=== PATIENT | female | born 1980 | race Asian ===

== ENCOUNTER 2018-10-29 16:56 | Emergency (ER) | payer SELFPAY ==
[~2018-10-29] VITALS: Ht 160 cm; Wt 49.0 kg
[2018-10-29 17:47] VITALS: BP 124/68
[2018-10-29 17:59] VITALS: BP 154/110
--- NOTE | 2018-10-29 19:51 | NUR ---
NO ANSWER AT 1950, 2004, AND 2034. PATIENT LEFT WITHOUT BEING SEEN BY DR. MEIER. NO FURTHER CARE PROVIDED FOR PATIENT.
== END 2018-10-29 19:51 | disposition left against medical advice (07) ==
LOC: MED 16:56
DX: M79.622 Pain in left upper arm (principal); E78.00 Pure hypercholesterolemia, unspecified; Z53.21 Procedure and treatment not carried out due to patient leaving prior to being seen by health care provider

== ENCOUNTER 2021-04-27 13:28 | Emergency (ER) | payer OTHER ==
[~2021-04-27] VITALS: Ht 165.1 cm; Wt 56.7 kg
--- NOTE | 2021-04-27 13:28 | NUR ---
PT BVROUGHT TO BED 7 VIA [facility]
[2021-04-27 13:29] VITALS: BP 123/77
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
--- NOTE | 2021-04-27 14:00 | NUR ---
pt ambulated to restroom for urine sample.
[2021-04-27 14:26] LABS: BASOPHILS # (AUTO) 0.1 K/uL (0.00-0.22); BASOPHILS % (AUTO) 0.8 % (0.0-2.0); EOSINOPHILS # (AUTO) 0.1 K/uL (0-0.4); EOSINOPHILS % (AUTO) 0.6 % (0.0-4.0); HEMATOCRIT 46.6 % (36-48); HEMOGLOBIN 16.1 g/dL (12.0-16.0); LYMPHOCYTES # (AUTO) 2.7 K/uL (2.5-16.5); LYMPHOCYTES % (AUTO) 32.1 % (20.5-51.1); MEAN CORPUSCULAR HEMOGLOBIN 33 pg (27-31); MEAN CORPUSCULAR HGB CONC 35 g/dL (33-37); MEAN CORPUSCULAR VOLUME 94.4 fL (80-94); MONOCYTES # (AUTO) 0.5 K/uL (0.8-1.0); MONOCYTES % (AUTO) 5.8 % (1.7-9.3); NEUTROPHILS # (AUTO) 5.1 K/uL (1.8-7.7); NEUTROPHILS % (AUTO) 60.7 % (42.2-75.2); PLATELET COUNT (AUTO) 244 K/uL (140-450); RED BLOOD CELL COUNT(AUTO) 4.93 MIL/uL (4.20-5.40); RED CELL DISTRIBUTION WIDTH 12.1 % (11.6-13.7); WHITE BLOOD COUNT (AUTO) 8.4 K/uL (4.8-10.8)
[2021-04-27 14:27] LABS: APPEARANCE,URINE CLEAR (CLEAR); BILIRUBIN,URINE NEGATIVE (NEGATIVE); BLOOD, URINE NEGATIVE (NEGATIVE); COLOR,URINE YELLOW (YELLOW); LEUKOCYTE ESTERASE ,URINE NEGATIVE (NEGATIVE); NITRITE, URINE NEGATIVE (NEGATIVE); UGLUCOSE 3+ (NEGATIVE)
--- NOTE | 2021-04-27 14:40 | NUR ---
lab at bedside, ua done, hcg neg, bs 211. pt amb to brp w/o asst. vss, pt stable at this time
[2021-04-27 14:41] LABS: ALBUMIN 4.1 g/dL (3.4-5.0); ANION GAP 12.7 (8-16); ASPARTATE AMINOTRANSFERASE 12 U/L (15-37); CARBON DIOXIDE 29.3 mmol/L (21-32); CHLORIDE 101 mmol/L (98-107); CREATININE 0.6 mg/dL (0.6-1.3); GFR ARICAN-AMERICAN 141 mL/min (>90); GLUCOSE 264 mg/dL (74-106); SODIUM SERUM 139 mmol/L (136-145); TOTAL BILIRUBIN 0.3 mg/dL (0.0-1.0); UREA NITROGEN, BLOOD 9 mg/dL (7-18)
[2021-04-27 14:44] LABS: ACETAMINOPHEN < 0.5 ug/ml (10-30); SALICYLATE < 2.8 mg/dL (2.8-20.0)
[2021-04-27 14:44] LABS: BARBITURATE, URINE NEGATIVE ng/ml (NEG <=200); BENZODIAZEPINE, URINE NEGATIVE ng/mL (NEG <=200); CANNABINOID, URINE NEGATIVE ng/mL (NEG <=50); COCAINE, URINE NEGATIVE ng/mL (NEG <=300); OPIATE, URINE NEGATIVE ng/mL (NEG <=2000); PHENCYCLIDINE SCREEN,URINE NEGATIVE ng/mL (NEG <=25)
--- NOTE | 2021-04-27 15:45 | NUR ---
[facility] monitor at bedside.
--- NOTE | 2021-04-27 16:14 | NUR ---
Patient resting in position of comfort. No distress noted. shelter monitor in place. Bed locked in lowest position, side rails x 1.
[2021-04-27 16:22] VITALS: BP 118/72
--- NOTE | 2021-04-27 16:26 | NUR ---
Patient on line with [facility]. Connected to [place] intrepretor #[id number], however, patient began speaking in Azeri. Disconnected from intrepretor @ [id number].
--- NOTE | 2021-04-27 16:39 | NUR ---
Telepsych MD states Abilify 10mg now and transfer to outpatient hospital treatment.
--- NOTE | 2021-04-27 16:43 | NUR ---
Attempted to contact Rick Gutierres (brother) x 2, person answering phone hung up.
[2021-04-27] MEDS ORDERED: ABI10 PO (17:36)
--- NOTE | 2021-04-27 17:50 | NUR ---
Contacted Rick Gutierres (brother); patient's mom answered and advised of discharge. Mother states 30 minute ETA for transportation. Addendum: 04/27/21 at 1805 by HOSSEIN Pt made aware of mother's ETA and advised to wait in lobby.
--- NOTE | 2021-04-27 18:00 | NUR ---
Patient discharged with v/s stable. Written and verbal after care instructions given and explained. Patient alert, oriented and verbalized understanding of instructions. Ambulatory with steady gait. All questions addressed prior to discharge. ID band removed. Patient advised to follow up with PMD. Rx of Abilify given. Patient educated on indication of medication including possible reaction and side effects. Opportunity to ask questions provided and answered.
== END 2021-04-27 18:00 | disposition home or self-care (01) ==
LOC: MED 13:28
DX: F60.0 Paranoid personality disorder (principal); E11.9 Type 2 diabetes mellitus without complications; E03.9 Hypothyroidism, unspecified; E78.5 Hyperlipidemia, unspecified; Z79.899 Other long term (current) drug therapy
CPT/HCPCS: 36415; 80053; 80305; 81003; 81025; 82948; 85025; 99283; G0480; G0482

== ENCOUNTER 2023-09-18 09:06 | Inpatient (IN) | payer OTHER ==
[~2023-09-18] VITALS: Ht 152.4 cm; Wt 45.5 kg
[2023-09-18] VITALS (12 sets, daily range): BP systolic 103–131; BP diastolic 25–85; PULSE 120–144; RESP 26–53; TEMP 96.4–97.9; O2SAT 36–100
[~2023-09-18 09:06] MED LIST: ABI10 PO; ETOMIDATE 20 MG/10 ML VIAL IVP ONE
[2023-09-18] MEDS: NACL 0.9% 2,000 ML IV SCH (09:22)
[2023-09-18 09:53] LABS: HEMATOCRIT 45.7 % (36-48); HEMOGLOBIN 13.8 g/dL (12.0-16.0); MEAN CORPUSCULAR HEMOGLOBIN 31 pg (27-31); MEAN CORPUSCULAR HGB CONC 30 g/dL (33-37); MEAN CORPUSCULAR VOLUME 103.2 fL (80-94); PLATELET COUNT (AUTO) 753 K/uL (140-450); RED BLOOD CELL COUNT(AUTO) 4.43 MIL/uL (4.20-5.40); RED CELL DISTRIBUTION WIDTH 13.2 % (11.6-13.7)
[2023-09-18 09:59] LABS: INR 0.98 (0.8-1.2); PARTIAL THROMBOPLASTIN TIME 24.4 secs (22-35.6); PROTHROMBIN TIME 10.3 secs (10.8-13.4)
[2023-09-18 10:02] LABS: WHITE BLOOD COUNT (AUTO) 31.7 K/uL (4.8-10.8)
[2023-09-18 10:03] LABS: LYMPHOCYTES % (MANUAL) 12 % (20-46); MONOCYTES % (MANUAL) 3 % (5-12)
[2023-09-18 10:04] LABS: ALANINE AMINOTRANSFERASE 17 U/L (12-78); ALKALINE PHOSPHATASE 177 U/L (50-136); ASPARTATE AMINOTRANSFERASE 12 U/L (15-37); BILIRUBIN,DIRECT 0.1 mg/dL (0.0-0.3); CREATINE KINASE, TOTAL 36 U/L (26-192); PLATELET ESTIMATE INCREASED; TOTAL BILIRUBIN 0.3 mg/dL (0.0-1.0); TOTAL PROTEIN, SERUM 10.1 g/dL (6.4-8.2)
[2023-09-18 10:06] LABS: LACTIC ACID 9.7 mmol/L (0.4-2.0)
[2023-09-18 10:18] LABS: ANION GAP 36.6 (8-16); CARBON DIOXIDE 10.2 mmol/L (21-32); CREATININE 1.8 mg/dL (0.6-1.3); POTASSIUM 4.8 mmol/L (3.5-5.1)
[2023-09-18] MEDS: ROCURONIUM 50 MG/5 ML VIAL IV ONE (10:18)
[2023-09-18] MEDS: ETOMIDATE 20 MG/10 ML VIAL IVP ONE (10:19)
[2023-09-18] MEDS ORDERED: PIPERACILLIN/TAZOBACTAM 3.375 GM VIAL IV ONE (10:20)
[2023-09-18] MEDS: PIPERACILLIN/TAZOBACTAM 3.375 GM in DEXTROSE 5% 50 ML IV ONE (10:47)
[2023-09-18] MEDS ORDERED: MAGNESIUM OXIDE 400 MG TAB PO PRN ×2 (10:50→12:45)
[2023-09-18] MEDS ORDERED: ONDANSETRON 4 MG/2 ML VIAL IVP PRN ×2 (10:50→12:45)
[2023-09-18] MEDS ORDERED: POTASSIUM CHLORIDE 10 MEQ TABER PO PRN ×2 (10:50→12:45)
[2023-09-18] MEDS ORDERED: VANCOMYCIN PER PHARMACY MC PRN (10:50)
[2023-09-18] MEDS ORDERED: MAG SULF 2000 MG/WATER PREMIX 50 ML IV PRN ×2 (10:50→12:45)
[2023-09-18] MEDS ORDERED: INSULIN LISPRO SLIDING SCALE 100 UNITS/ML VIAL SUBQ PRN (10:55)
[2023-09-18] MEDS ORDERED: DEXTROSE 50% 50 ML SYR IVP PRN ×2 (10:55→18:45)
[2023-09-18] MEDS ORDERED: RENAL DOSING PER PHARMACY MC PRN (11:15)
[2023-09-18] MEDS ORDERED: NACL 0.45% 1,000 ML IV SCH (11:30)
[2023-09-18] MEDS ORDERED: VANCOMYCIN 1,000 MG VIAL ONE (11:31)
[2023-09-18] MEDS: VANCOMYCIN 1,000 MG in NACL 0.9% 250 ML IV SCH (11:42)
[2023-09-18] MEDS ORDERED: MIDAZOLAM 5 MG/1 ML VIAL ONE (12:21)
[2023-09-18] MEDS: MIDAZOLAM 5 MG/5 ML VIAL IV SCH (12:30)
[2023-09-18] MEDS: BLOOD GLUCOSE MONITORING 1 DEV DEV FS SCH ×2 (12:31→16:00)
[2023-09-18 12:39] LABS: BLOOD GAS PCO2 33.1 mmHg (35-45); BLOOD GAS PH 7.062 (7.35-7.45)
[2023-09-18 12:40] LABS: BLOOD GAS HCO3 9.2 mmol/L (22-26); BLOOD GAS PO2 60.7 mmHg (75-100)
[2023-09-18 12:41] LABS: BLOOD GAS O2 SAT% 81.5 % (92.0-98.5)
[2023-09-18] MEDS ORDERED: DOCUSATE SODIUM 250 MG GELCAP PO PRN (12:45)
[2023-09-18] MEDS ORDERED: diphenhydrAMINE 50 MG/ML VIAL IVP PRN (12:45)
[2023-09-18] MEDS ORDERED: bisacodyL 10 MG SUPP RC PRN (12:45)
[2023-09-18] MEDS ORDERED: ZOLPIDEM 5 MG TAB PO PRN (12:45)
[2023-09-18] MEDS ORDERED: CLONIDINE HYDROCHLORIDE 0.1 MG TAB PO PRN (12:45)
[2023-09-18] MEDS ORDERED: guaiFENesin DM 200/20 MG-10 ML 10 ML UDC PO PRN (12:45)
[2023-09-18] MEDS ORDERED: ACETAMINOPHEN 650 MG SUPP RC PRN (12:45)
[2023-09-18] MEDS ORDERED: HYDROcodone/APAP 5/325 MG 1 TAB TAB PO PRN ×2 (12:45)
[2023-09-18] MEDS ORDERED: ACETAMINOPHEN 325 MG TAB PO PRN (12:45)
[2023-09-18] MEDS ORDERED: ALUMINUM HYD/MAG/SIMETHICONE 30 ML UDC PO PRN (12:45)
[2023-09-18] MEDS ORDERED: SODIUM PHOSPHATE 118 ML ENEM RC PRN (12:45)
[2023-09-18] MEDS ORDERED: MORPHINE SULFATE 2 MG/ML SYR IVP PRN (12:45)
[2023-09-18 12:48] LABS: BLOOD GAS BASE EXCESS -22.1 mmol/L (-2.0-2.0); BLOOD GAS PCO2 20.3 mmHg (35-45); BLOOD GAS PH 7.088 (7.35-7.45); BLOOD GAS PO2 46.9 mmHg (75-100)
[2023-09-18] MEDS: INSULIN REGULAR, HUMAN 100 UNIT in NACL 0.9% 100 ML IV ONE (12:49)
[2023-09-18 12:51] LABS: BLOOD GAS O2 SAT% 67.4 % (92.0-98.5)
[2023-09-18 13:30] LABS: ACETONE, SERUM Small (NEGATIVE)
[2023-09-18] MEDS: PROPOFOL 1000 MG/100 ML PREMIX 100 ML IV PRN (13:37)
[2023-09-18 13:39] LABS: SALICYLATE 5.2 mg/dL (2.8-20.0)
[2023-09-18] MEDS: SODIUM BICARBONATE 8.4% PFS 50 MEQ/50 ML SYR IVP ONE ×2 (14:35)
[2023-09-18] MEDS: INSULIN REGULAR, HUMAN 100 UNIT/ML VIAL IVP ONE (15:00)
[2023-09-18] MEDS ORDERED: SODIUM BICARBONATE 8.4% 100 MEQ in NACL 0.9% 1,000 ML IV STA (15:16)
[2023-09-18 15:39] LABS: BLOOD GAS BASE EXCESS -3.8 mmol/L (-2.0-2.0); BLOOD GAS PCO2 37.5 mmHg (35-45); BLOOD GAS PH 7.366 (7.35-7.45); BLOOD GAS PO2 24.2 mmHg (75-100)
[2023-09-18 16:17] LABS: APPEARANCE,URINE CLEAR (CLEAR); BILIRUBIN,URINE NEGATIVE (NEGATIVE); BLOOD, URINE 1+ (NEGATIVE); COLOR,URINE YELLOW (YELLOW); LEUKOCYTE ESTERASE ,URINE NEGATIVE (NEGATIVE); NITRITE, URINE NEGATIVE (NEGATIVE); PROTEIN,URINE TRACE (NEGATIVE); UGLUCOSE 3+ (NEGATIVE); UROBILINOGEN,URINE 0.2 EU/dL (0.2 - 1)
[2023-09-18 16:18] LABS: ANION GAP 28.3 (8-16); CALCIUM 8.7 mg/dL (8.5-10.1); CARBON DIOXIDE 14.5 mmol/L (21-32); CREATININE 1.5 mg/dL (0.6-1.3); POTASSIUM 4.8 mmol/L (3.5-5.1)
[2023-09-18 16:28] LABS: AMPHETAMINE, URINE NEGATIVE ng/ml (NEG <=1000); BARBITURATE, URINE NEGATIVE ng/ml (NEG <=200); BENZODIAZEPINE, URINE NEGATIVE ng/mL (NEG <=200); CANNABINOID, URINE NEGATIVE ng/mL (NEG <=50); COCAINE, URINE NEGATIVE ng/mL (NEG <=300); OPIATE, URINE NEGATIVE ng/mL (NEG <=2000); PHENCYCLIDINE SCREEN,URINE NEGATIVE ng/mL (NEG <=25)
[2023-09-18 16:30] LABS: BACTERIA,URINE 0-2 /HPF (None Seen); MUCUS,URINE None Seen /LPF (None Seen); SQUAMOUS EPITHELIAL CELL,UR 0-3 (FEW) /LPF (0-3 (FEW)); WBC,URINE 0 /HPF (0-5)
[2023-09-18] MEDS ORDERED: PIPERACILLIN/TAZOBACTAM 3.375 GM in DEXTROSE 5% 50 ML IV SCH (18:00)
[2023-09-18] MEDS: DEXT 5% / NACL 0.45% 1,000 ML IV SCH (18:45)
[2023-09-18] MEDS: NACL 0.9% 1,000 ML IV SCH (18:56)
[2023-09-18] MEDS: PIPERACILLIN/TAZOBACTAM 2.25 GM in DEXTROSE 5% 50 ML IV SCH (18:57)
[2023-09-18] MEDS: fentaNYL citrate 1 MG in NACL 0.9% 80 ML IV PRN (19:29)
[2023-09-18] MEDS: MIDAZOLAM MDV 50 MG in NACL 0.9% 40 ML IV PRN (19:30)
[2023-09-18 20:24] LABS: MAGNESIUM 2.2 mg/dL (1.8-2.4)
[2023-09-18 20:26] LABS: ANION GAP 15.2 (8-16); CALCIUM 7.9 mg/dL (8.5-10.1); CARBON DIOXIDE 26.8 mmol/L (21-32); CREATININE 1.1 mg/dL (0.6-1.3)
[2023-09-18] MEDS: KCL 20 MEQ IN 100 mL PREMIX 200 ML IV PRN (20:47)
[2023-09-18] MEDS: ALBUTEROL 0.083% 2.5 MG/3 ML NEBU INH PRN (20:55)
[2023-09-18 21:53] LABS: FLU A ANTIGEN negative (NEGATIVE); FLU B ANTIGEN NEGATIVE (NEGATIVE)
[2023-09-18] MEDS: POTASSIUM PHOSPHATE 30 MM in NACL 0.9% 250 ML IV ONE (22:59)
[2023-09-19] VITALS (24 sets, daily range): BP systolic 96–154; BP diastolic 52–86; PULSE 111–141; RESP 22–43; TEMP 96.6–100.1; O2SAT 92–100
[2023-09-19 01:04] LABS: MAGNESIUM 2.1 mg/dL (1.8-2.4); PHOSPHORUS 2.4 mg/dL (2.5-4.9)
[2023-09-19 01:13] LABS: ANION GAP 12.8 (8-16); CALCIUM 7.4 mg/dL (8.5-10.1); CARBON DIOXIDE 27.9 mmol/L (21-32); POTASSIUM 3.7 mmol/L (3.5-5.1)
[2023-09-19] MEDS: LORazepam 2 MG/ML VIAL IVP PRN (04:41)
[2023-09-19 07:07] LABS: POTASSIUM 3.2 mmol/L (3.5-5.1)
[2023-09-19 07:08] LABS: CALCIUM 7.2 mg/dL (8.5-10.1); CARBON DIOXIDE 28.2 mmol/L (21-32); CREATININE 0.9 mg/dL (0.6-1.3); TOTAL BILIRUBIN 0.1 mg/dL (0.0-1.0); TOTAL PROTEIN, SERUM 6.3 g/dL (6.4-8.2)
[2023-09-19 07:09] LABS: ALBUMIN 1.7 g/dL (3.4-5.0); MAGNESIUM 1.9 mg/dL (1.8-2.4)
[2023-09-19 07:11] LABS: BASOPHILS # (AUTO) 0.1 K/uL (0.00-0.22); BASOPHILS % (AUTO) 0.3 % (0.0-2.0); HEMOGLOBIN 10.9 g/dL (12.0-16.0); LYMPHOCYTES # (AUTO) 1.9 K/uL (2.5-16.5); LYMPHOCYTES % (AUTO) 9.8 % (20.5-51.1); MEAN CORPUSCULAR HEMOGLOBIN 31 pg (27-31); MEAN CORPUSCULAR HGB CONC 34 g/dL (33-37); MEAN CORPUSCULAR VOLUME 91.9 fL (80-94); MONOCYTES # (AUTO) 1.5 K/uL (0.8-1.0); MONOCYTES % (AUTO) 7.6 % (1.7-9.3); NEUTROPHILS % (AUTO) 82.3 % (42.2-75.2); PLATELET COUNT (AUTO) 340 K/uL (140-450); RED BLOOD CELL COUNT(AUTO) 3.48 MIL/uL (4.20-5.40); RED CELL DISTRIBUTION WIDTH 12.2 % (11.6-13.7); WHITE BLOOD COUNT (AUTO) 19.4 K/uL (4.8-10.8)
[2023-09-19] MEDS: IPRATROPIUM 0.02% 0.5 MG/2.5 ML NEBU INH PRN (07:19)
[2023-09-19 08:26] LABS: ANION GAP 14.5 (8-16); CALCIUM 7.1 mg/dL (8.5-10.1); CARBON DIOXIDE 24.1 mmol/L (21-32); CREATININE 0.7 mg/dL (0.6-1.3)
[2023-09-19 08:34] LABS: POTASSIUM 2.6 mmol/L (3.5-5.1)
[2023-09-19 09:32] LABS: BLOOD GAS BASE EXCESS -0.4 mmol/L (-2.0-2.0); BLOOD GAS PH 7.497 (7.35-7.45); BLOOD GAS PO2 58.4 mmHg (75-100)
[2023-09-19 09:34] LABS: BLOOD GAS O2 SAT% 92.3 % (92.0-98.5)
[2023-09-19] MEDS: POTASSIUM CHLORIDE 20% 40 MEQ/15 ML UDC NG SCH (09:40)
[2023-09-19] MEDS: PANTOPRAZOLE 40 MG INJ VIAL IVP SCH (09:41)
[2023-09-19] MEDS: VANCOMYCIN 1,000 MG in DEXTROSE 5% 250 ML IV SCH (09:41)
[2023-09-19] MEDS: KCL 20 MEQ IN 100 mL PREMIX 100 ML IV ONE (10:09)
[2023-09-19] MEDS: NACL 0.45% 1,000 ML IV SCH ×2 (10:33→23:21)
[2023-09-19] MEDS ORDERED: INSULIN REGULAR, HUMAN 100 UNIT in NACL 0.9% 100 ML IV SCH (12:45)
[2023-09-19] MEDS: INSULIN REGULAR, HUMAN 100 UNIT in NACL 0.9% 100 ML IV SCH (12:50)
[2023-09-19] MEDS: CALCIUM GLUC 1 GM/50 mL NS BAG 50 ML IV SCH (13:00)
[2023-09-19 13:14] LABS: ANION GAP 13.8 (8-16); CALCIUM 7.2 mg/dL (8.5-10.1); CARBON DIOXIDE 26.4 mmol/L (21-32); CREATININE 0.9 mg/dL (0.6-1.3); POTASSIUM 3.2 mmol/L (3.5-5.1)
[2023-09-19 13:19] LABS: MAGNESIUM 1.9 mg/dL (1.8-2.4)
[2023-09-19] MEDS: MAG SULF 2000 MG/WATER PREMIX 50 ML IV SCH (14:57)
[2023-09-19 17:04] LABS: ALBUMIN 1.7 g/dL (3.4-5.0); CALCIUM 7.4 mg/dL (8.5-10.1); CARBON DIOXIDE 25.5 mmol/L (21-32); CREATININE 0.7 mg/dL (0.6-1.3); MAGNESIUM 2.2 mg/dL (1.8-2.4); PHOSPHORUS 1.3 mg/dL (2.5-4.9); POTASSIUM 3.5 mmol/L (3.5-5.1); TOTAL BILIRUBIN 0.5 mg/dL (0.0-1.0); TOTAL PROTEIN, SERUM 6.7 g/dL (6.4-8.2)
[2023-09-19 17:52] LABS: BLOOD GAS PCO2 31.6 mmHg (35-45); BLOOD GAS PH 7.483 (7.35-7.45)
[2023-09-19 17:53] LABS: BLOOD GAS BASE EXCESS 0.3 mmol/L (-2.0-2.0); BLOOD GAS HCO3 23.2 mmol/L (22-26); BLOOD GAS O2 SAT% 94.4 % (92.0-98.5); BLOOD GAS PO2 68.6 mmHg (75-100)
[2023-09-19] MEDS: MIDAZOLAM MDV 50 MG in NACL 0.9% 40 ML IV PRN (20:20)
[2023-09-19] MEDS ORDERED: VANCOMYCIN 1,000 MG VIAL ONE (21:23)
[2023-09-19 21:52] LABS: ALBUMIN 1.6 g/dL (3.4-5.0); CALCIUM 7.4 mg/dL (8.5-10.1); CARBON DIOXIDE 27.1 mmol/L (21-32); CREATININE 0.6 mg/dL (0.6-1.3); MAGNESIUM 2.6 mg/dL (1.8-2.4); POTASSIUM 3.1 mmol/L (3.5-5.1); TOTAL BILIRUBIN 0.6 mg/dL (0.0-1.0); TOTAL PROTEIN, SERUM 6.1 g/dL (6.4-8.2)
[2023-09-19 21:53] LABS: PHOSPHORUS 1.1 mg/dL (2.5-4.9)
[2023-09-20] VITALS (33 sets, daily range): BP systolic 102–148; BP diastolic 57–80; PULSE 91–131; RESP 18–33; TEMP 98.9–102.8; O2SAT 95–100
[2023-09-20] MEDS: BLOOD GLUCOSE MONITORING 1 DEV DEV FS SCH (00:41)
[2023-09-20] MEDS: POTASSIUM CHLORIDE 20% 40 MEQ/15 ML UDC ONE (01:43)
[2023-09-20] MEDS: POTASSIUM CHLORIDE 20% 40 MEQ/15 ML UDC GT PRN (01:44)
[2023-09-20 05:44] LABS: BASOPHILS # (AUTO) 0.1 K/uL (0.00-0.22); BASOPHILS % (AUTO) 0.4 % (0.0-2.0); EOSINOPHILS # (AUTO) 0.1 K/uL (0-0.4); EOSINOPHILS % (AUTO) 0.7 % (0.0-4.0); HEMATOCRIT 29.5 % (36-48); HEMOGLOBIN 10.1 g/dL (12.0-16.0); LYMPHOCYTES # (AUTO) 2.3 K/uL (2.5-16.5); LYMPHOCYTES % (AUTO) 13.8 % (20.5-51.1); MEAN CORPUSCULAR HEMOGLOBIN 32 pg (27-31); MEAN CORPUSCULAR HGB CONC 34 g/dL (33-37); MEAN CORPUSCULAR VOLUME 92.5 fL (80-94); MONOCYTES # (AUTO) 0.9 K/uL (0.8-1.0); MONOCYTES % (AUTO) 5.2 % (1.7-9.3); NEUTROPHILS # (AUTO) 13.2 K/uL (1.8-7.7); NEUTROPHILS % (AUTO) 79.9 % (42.2-75.2); PLATELET COUNT (AUTO) 284 K/uL (140-450); RED BLOOD CELL COUNT(AUTO) 3.18 MIL/uL (4.20-5.40); RED CELL DISTRIBUTION WIDTH 12.6 % (11.6-13.7); WHITE BLOOD COUNT (AUTO) 16.6 K/uL (4.8-10.8)
[2023-09-20] MEDS: INSULIN LISPRO SLIDING SCALE 100 UNITS/ML VIAL SUBQ PRN (06:29)
[2023-09-20] MEDS: fentaNYL citrate 1 MG in NACL 0.9% 80 ML IV PRN (06:32)
[2023-09-20 06:35] LABS: ALBUMIN 1.7 g/dL (3.4-5.0); CALCIUM 7.6 mg/dL (8.5-10.1); CARBON DIOXIDE 20.5 mmol/L (21-32); CREATININE 0.7 mg/dL (0.6-1.3); MAGNESIUM 2.4 mg/dL (1.8-2.4); POTASSIUM 4.5 mmol/L (3.5-5.1); TOTAL BILIRUBIN 0.9 mg/dL (0.0-1.0); TOTAL PROTEIN, SERUM 6.3 g/dL (6.4-8.2)
[2023-09-20] MEDS: ACETAMINOPHEN 325 MG TAB PO PRN (08:52)
[2023-09-20] MEDS ORDERED: DEXMEDETOMIDINE HCL 400 MCG in NACL 0.9% 96 ML IV PRN (09:35)
[2023-09-20 10:25] LABS: BLOOD GAS HCO3 20.3 mmol/L (22-26); BLOOD GAS PCO2 29.4 mmHg (35-45); BLOOD GAS PH 7.458 (7.35-7.45); BLOOD GAS PO2 137.2 mmHg (75-100)
[2023-09-20 10:26] LABS: BLOOD GAS BASE EXCESS -2.7 mmol/L (-2.0-2.0); BLOOD GAS O2 SAT% 98.6 % (92.0-98.5)
[2023-09-20] MEDS: PIPERACILLIN/TAZOBACTAM 3.375 GM in DEXTROSE 5% 50 ML IV SCH (13:10)
[2023-09-20] MEDS: POTASSIUM PHOSPHATE 15 MM in NACL 0.9% 250 ML IV ONE (13:15)
[2023-09-20] MEDS: INSULIN LANTUS 100 UNITS/ML 10 ML VIAL SUBQ SCH (14:28)
[2023-09-20] MEDS: DEXMEDETOMIDINE HCL 400 MCG in NACL 0.9% 96 ML IV PRN (14:35)
[2023-09-20] MEDS ORDERED: fentaNYL citrate 1 MG in NACL 0.9% 80 ML IV PRN ×2 (18:30→19:00)
[2023-09-20] MEDS ORDERED: MIDAZOLAM MDV 50 MG in NACL 0.9% 40 ML IV PRN (18:30)
[2023-09-21] VITALS (38 sets, daily range): BP systolic 87–146; BP diastolic 46–81; PULSE 60–94; RESP 18–23; TEMP 97.7–101.1; O2SAT 96–100
[2023-09-21 04:50] LABS: BASOPHILS # (AUTO) 0.1 K/uL (0.00-0.22); BASOPHILS % (AUTO) 0.5 % (0.0-2.0); EOSINOPHILS # (AUTO) 0.2 K/uL (0-0.4); EOSINOPHILS % (AUTO) 1.9 % (0.0-4.0); HEMATOCRIT 24.5 % (36-48); HEMOGLOBIN 8.4 g/dL (12.0-16.0); LYMPHOCYTES # (AUTO) 2.7 K/uL (2.5-16.5); LYMPHOCYTES % (AUTO) 23.8 % (20.5-51.1); MEAN CORPUSCULAR HEMOGLOBIN 32 pg (27-31); MEAN CORPUSCULAR HGB CONC 34 g/dL (33-37); MEAN CORPUSCULAR VOLUME 92.2 fL (80-94); MONOCYTES # (AUTO) 0.8 K/uL (0.8-1.0); MONOCYTES % (AUTO) 6.7 % (1.7-9.3); NEUTROPHILS # (AUTO) 7.5 K/uL (1.8-7.7); NEUTROPHILS % (AUTO) 67.1 % (42.2-75.2); PLATELET COUNT (AUTO) 206 K/uL (140-450); RED BLOOD CELL COUNT(AUTO) 2.65 MIL/uL (4.20-5.40); RED CELL DISTRIBUTION WIDTH 12.3 % (11.6-13.7); WHITE BLOOD COUNT (AUTO) 11.2 K/uL (4.8-10.8)
[2023-09-21 05:58] LABS: ALBUMIN 1.5 g/dL (3.4-5.0); ANION GAP 9.1 (8-16); CALCIUM 7.4 mg/dL (8.5-10.1); CREATININE 0.9 mg/dL (0.6-1.3); POTASSIUM 4.1 mmol/L (3.5-5.1); TOTAL BILIRUBIN 0.5 mg/dL (0.0-1.0); TOTAL PROTEIN, SERUM 5.7 g/dL (6.4-8.2)
[2023-09-21 07:25] LABS: MAGNESIUM 2.2 mg/dL (1.8-2.4)
[2023-09-21] MEDS ORDERED: INSULIN LANTUS 100 UNITS/ML 10 ML VIAL SUBQ SCH (11:00)
[2023-09-21] MEDS ORDERED: NOREPINEPHRINE 8 MG in DEXTROSE 5% 250 ML IV PRN (12:15)
[2023-09-22] VITALS (48 sets, daily range): BP systolic 95–172; BP diastolic 44–84; PULSE 46–103; RESP 18–22; TEMP 95–98.9; O2SAT 97–100
[2023-09-22] MEDS: fentaNYL citrate 1 MG in NACL 0.9% 80 ML IV PRN (03:30)
[2023-09-22 05:40] LABS: BASOPHILS % (AUTO) 0.5 % (0.0-2.0); EOSINOPHILS # (AUTO) 0.2 K/uL (0-0.4); EOSINOPHILS % (AUTO) 2.5 % (0.0-4.0); HEMOGLOBIN 8.4 g/dL (12.0-16.0); LYMPHOCYTES # (AUTO) 2.4 K/uL (2.5-16.5); LYMPHOCYTES % (AUTO) 28.3 % (20.5-51.1); MEAN CORPUSCULAR HEMOGLOBIN 32 pg (27-31); MEAN CORPUSCULAR HGB CONC 35 g/dL (33-37); MEAN CORPUSCULAR VOLUME 92.2 fL (80-94); MONOCYTES # (AUTO) 0.4 K/uL (0.8-1.0); MONOCYTES % (AUTO) 5.3 % (1.7-9.3); NEUTROPHILS # (AUTO) 5.3 K/uL (1.8-7.7); NEUTROPHILS % (AUTO) 63.4 % (42.2-75.2); PLATELET COUNT (AUTO) 177 K/uL (140-450); RED BLOOD CELL COUNT(AUTO) 2.61 MIL/uL (4.20-5.40); RED CELL DISTRIBUTION WIDTH 11.9 % (11.6-13.7); WHITE BLOOD COUNT (AUTO) 8.4 K/uL (4.8-10.8)
[2023-09-22 05:45] LABS: ALBUMIN 1.3 g/dL (3.4-5.0); ANION GAP 8.9 (8-16); CALCIUM 7.3 mg/dL (8.5-10.1); CARBON DIOXIDE 25.6 mmol/L (21-32); CREATININE 0.8 mg/dL (0.6-1.3); MAGNESIUM 2.2 mg/dL (1.8-2.4); POTASSIUM 3.5 mmol/L (3.5-5.1); TOTAL BILIRUBIN 0.3 mg/dL (0.0-1.0); TOTAL PROTEIN, SERUM 5.3 g/dL (6.4-8.2)
[2023-09-22] MEDS: levETIRAcetam 1,000 MG in NACL 0.9% 100 ML IV SCH (16:01)
[2023-09-23] VITALS (32 sets, daily range): BP systolic 92–185; BP diastolic 49–113; PULSE 84–129; RESP 18–40; TEMP 97.7–98.4; O2SAT 90–100
[2023-09-23 05:34] LABS: BASOPHILS % (AUTO) 0.2 % (0.0-2.0); EOSINOPHILS # (AUTO) 0.1 K/uL (0-0.4); EOSINOPHILS % (AUTO) 0.6 % (0.0-4.0); HEMATOCRIT 25.7 % (36-48); HEMOGLOBIN 9.1 g/dL (12.0-16.0); LYMPHOCYTES # (AUTO) 1.2 K/uL (2.5-16.5); LYMPHOCYTES % (AUTO) 10.4 % (20.5-51.1); MEAN CORPUSCULAR HEMOGLOBIN 32 pg (27-31); MEAN CORPUSCULAR HGB CONC 35 g/dL (33-37); MEAN CORPUSCULAR VOLUME 90.6 fL (80-94); MONOCYTES # (AUTO) 0.6 K/uL (0.8-1.0); MONOCYTES % (AUTO) 5.5 % (1.7-9.3); NEUTROPHILS # (AUTO) 9.4 K/uL (1.8-7.7); NEUTROPHILS % (AUTO) 83.3 % (42.2-75.2); PLATELET COUNT (AUTO) 239 K/uL (140-450); RED BLOOD CELL COUNT(AUTO) 2.84 MIL/uL (4.20-5.40); RED CELL DISTRIBUTION WIDTH 12.3 % (11.6-13.7); WHITE BLOOD COUNT (AUTO) 11.3 K/uL (4.8-10.8)
[2023-09-23 06:52] LABS: ALBUMIN 1.4 g/dL (3.4-5.0); ANION GAP 12.8 (8-16); CALCIUM 7.4 mg/dL (8.5-10.1); CARBON DIOXIDE 24.8 mmol/L (21-32); CREATININE 0.8 mg/dL (0.6-1.3); MAGNESIUM 2.2 mg/dL (1.8-2.4); POTASSIUM 3.6 mmol/L (3.5-5.1); TOTAL BILIRUBIN 0.2 mg/dL (0.0-1.0); TOTAL PROTEIN, SERUM 5.6 g/dL (6.4-8.2)
[2023-09-23] MEDS: INSULIN LANTUS 100 UNITS/ML 10 ML VIAL SUBQ SCH (10:02)
[2023-09-24] VITALS (31 sets, daily range): BP systolic 113–154; BP diastolic 55–84; PULSE 88–118; RESP 12–25; TEMP 97.8–99; O2SAT 93–100
[2023-09-24 06:46] LABS: ANION GAP 10.4 (8-16); CALCIUM 7.8 mg/dL (8.5-10.1); CREATININE 0.8 mg/dL (0.6-1.3); POTASSIUM 3.4 mmol/L (3.5-5.1)
[2023-09-25] VITALS (33 sets, daily range): BP systolic 102–156; BP diastolic 51–93; PULSE 75–112; RESP 18–22; TEMP 97.7–99.3; O2SAT 93–100
[2023-09-25 05:39] LABS: BASOPHILS % (AUTO) 0.3 % (0.0-2.0); EOSINOPHILS # (AUTO) 0.1 K/uL (0-0.4); EOSINOPHILS % (AUTO) 1.2 % (0.0-4.0); HEMATOCRIT 23.4 % (36-48); HEMOGLOBIN 8.1 g/dL (12.0-16.0); LYMPHOCYTES # (AUTO) 2.1 K/uL (2.5-16.5); LYMPHOCYTES % (AUTO) 17.8 % (20.5-51.1); MEAN CORPUSCULAR HEMOGLOBIN 32 pg (27-31); MEAN CORPUSCULAR HGB CONC 35 g/dL (33-37); MEAN CORPUSCULAR VOLUME 91.8 fL (80-94); MONOCYTES % (AUTO) 8.7 % (1.7-9.3); NEUTROPHILS # (AUTO) 8.4 K/uL (1.8-7.7); PLATELET COUNT (AUTO) 317 K/uL (140-450); RED BLOOD CELL COUNT(AUTO) 2.55 MIL/uL (4.20-5.40); RED CELL DISTRIBUTION WIDTH 12.4 % (11.6-13.7); WHITE BLOOD COUNT (AUTO) 11.7 K/uL (4.8-10.8)
[2023-09-25 05:49] LABS: ANION GAP 6.8 (8-16); CARBON DIOXIDE 32.1 mmol/L (21-32); CREATININE 0.9 mg/dL (0.6-1.3); POTASSIUM 3.9 mmol/L (3.5-5.1)
[2023-09-26] VITALS (33 sets, daily range): BP systolic 104–157; BP diastolic 53–76; PULSE 77–102; RESP 12–80; TEMP 97.4–99.5; O2SAT 95–100
[2023-09-26 05:46] LABS: CALCIUM 7.9 mg/dL (8.5-10.1); CREATININE 0.7 mg/dL (0.6-1.3)
[2023-09-27] VITALS (31 sets, daily range): BP systolic 100–165; BP diastolic 59–85; PULSE 72–101; RESP 12–22; TEMP 96.9–98.2; O2SAT 93–100
[2023-09-27] MEDS: VANCOMYCIN 1,000 MG in DEXTROSE 5% 250 ML IV SCH (04:03)
[2023-09-27 05:48] LABS: ANION GAP 7.8 (8-16); CALCIUM 8.3 mg/dL (8.5-10.1); CARBON DIOXIDE 31.3 mmol/L (21-32); CREATININE 0.7 mg/dL (0.6-1.3); POTASSIUM 4.1 mmol/L (3.5-5.1)
[2023-09-27 08:00] LABS: BASOPHILS # (AUTO) 0.1 K/uL (0.00-0.22); BASOPHILS % (AUTO) 0.5 % (0.0-2.0); EOSINOPHILS # (AUTO) 0.3 K/uL (0-0.4); EOSINOPHILS % (AUTO) 3.1 % (0.0-4.0); HEMATOCRIT 23.3 % (36-48); HEMOGLOBIN 8.2 g/dL (12.0-16.0); LYMPHOCYTES # (AUTO) 1.6 K/uL (2.5-16.5); MEAN CORPUSCULAR HEMOGLOBIN 32 pg (27-31); MEAN CORPUSCULAR HGB CONC 35 g/dL (33-37); MEAN CORPUSCULAR VOLUME 92.2 fL (80-94); MONOCYTES # (AUTO) 0.8 K/uL (0.8-1.0); MONOCYTES % (AUTO) 7.1 % (1.7-9.3); NEUTROPHILS % (AUTO) 74.3 % (42.2-75.2); PLATELET COUNT (AUTO) 424 K/uL (140-450); RED BLOOD CELL COUNT(AUTO) 2.53 MIL/uL (4.20-5.40); RED CELL DISTRIBUTION WIDTH 12.6 % (11.6-13.7); WHITE BLOOD COUNT (AUTO) 10.8 K/uL (4.8-10.8)
[2023-09-27] MEDS ORDERED: HYDROCOLLOID DRESSING TP PRN (15:20)
[2023-09-27] MEDS ORDERED: HYDROCOLLOID DRESSING TP SCH (15:20)
[2023-09-28] VITALS (28 sets, daily range): BP systolic 105–163; BP diastolic 52–84; PULSE 75–112; RESP 11–20; TEMP 97–98.4; O2SAT 96–100
[2023-09-28 06:16] LABS: ANION GAP 10.5 (8-16); CALCIUM 8.3 mg/dL (8.5-10.1); CARBON DIOXIDE 30.5 mmol/L (21-32); CREATININE 0.7 mg/dL (0.6-1.3)
[2023-09-29] VITALS (26 sets, daily range): BP systolic 107–167; BP diastolic 52–81; PULSE 71–115; RESP 12–18; TEMP 97.4–100.1; O2SAT 95–100
[2023-09-29 06:33] LABS: ANION GAP 10.2 (8-16); CALCIUM 8.5 mg/dL (8.5-10.1); CARBON DIOXIDE 30.9 mmol/L (21-32); CREATININE 0.8 mg/dL (0.6-1.3); POTASSIUM 4.1 mmol/L (3.5-5.1)
[2023-09-30] VITALS (32 sets, daily range): BP systolic 99–163; BP diastolic 54–78; PULSE 70–97; RESP 12–27; TEMP 97.3–98.3; O2SAT 96–100
[2023-09-30 06:18] LABS: BASOPHILS # (AUTO) 0.1 K/uL (0.00-0.22); BASOPHILS % (AUTO) 0.5 % (0.0-2.0); EOSINOPHILS # (AUTO) 0.3 K/uL (0-0.4); EOSINOPHILS % (AUTO) 2.5 % (0.0-4.0); HEMATOCRIT 21.5 % (36-48); HEMOGLOBIN 7.3 g/dL (12.0-16.0); LYMPHOCYTES # (AUTO) 1.7 K/uL (2.5-16.5); LYMPHOCYTES % (AUTO) 16.5 % (20.5-51.1); MEAN CORPUSCULAR HEMOGLOBIN 31 pg (27-31); MEAN CORPUSCULAR HGB CONC 34 g/dL (33-37); MEAN CORPUSCULAR VOLUME 92.1 fL (80-94); MONOCYTES # (AUTO) 0.4 K/uL (0.8-1.0); MONOCYTES % (AUTO) 4.1 % (1.7-9.3); NEUTROPHILS # (AUTO) 8.1 K/uL (1.8-7.7); NEUTROPHILS % (AUTO) 76.4 % (42.2-75.2); PLATELET COUNT (AUTO) 505 K/uL (140-450); RED BLOOD CELL COUNT(AUTO) 2.34 MIL/uL (4.20-5.40); RED CELL DISTRIBUTION WIDTH 12.8 % (11.6-13.7); WHITE BLOOD COUNT (AUTO) 10.5 K/uL (4.8-10.8)
[2023-09-30 06:27] LABS: ANION GAP 11.1 (8-16); CALCIUM 8.6 mg/dL (8.5-10.1); CARBON DIOXIDE 29.9 mmol/L (21-32); CREATININE 0.8 mg/dL (0.6-1.3)
[2023-10-01] VITALS (32 sets, daily range): BP systolic 106–152; BP diastolic 57–82; PULSE 63–101; RESP 12–24; TEMP 98.2–98.9; O2SAT 94–100
[2023-10-01 06:43] LABS: BASOPHILS # (AUTO) 0.1 K/uL (0.00-0.22); BASOPHILS % (AUTO) 0.7 % (0.0-2.0); EOSINOPHILS # (AUTO) 0.3 K/uL (0-0.4); EOSINOPHILS % (AUTO) 3.3 % (0.0-4.0); HEMATOCRIT 22.1 % (36-48); HEMOGLOBIN 7.5 g/dL (12.0-16.0); LYMPHOCYTES # (AUTO) 1.8 K/uL (2.5-16.5); LYMPHOCYTES % (AUTO) 19.9 % (20.5-51.1); MEAN CORPUSCULAR HEMOGLOBIN 31 pg (27-31); MEAN CORPUSCULAR HGB CONC 34 g/dL (33-37); MEAN CORPUSCULAR VOLUME 91.3 fL (80-94); MONOCYTES # (AUTO) 0.3 K/uL (0.8-1.0); MONOCYTES % (AUTO) 3.8 % (1.7-9.3); NEUTROPHILS # (AUTO) 6.4 K/uL (1.8-7.7); NEUTROPHILS % (AUTO) 72.3 % (42.2-75.2); PLATELET COUNT (AUTO) 549 K/uL (140-450); RED BLOOD CELL COUNT(AUTO) 2.42 MIL/uL (4.20-5.40); RED CELL DISTRIBUTION WIDTH 13.1 % (11.6-13.7); WHITE BLOOD COUNT (AUTO) 8.8 K/uL (4.8-10.8)
[2023-10-01 06:44] LABS: ALBUMIN 1.7 g/dL (3.4-5.0); ANION GAP 9.3 (8-16); CALCIUM 8.3 mg/dL (8.5-10.1); CARBON DIOXIDE 30.7 mmol/L (21-32); CREATININE 0.8 mg/dL (0.6-1.3); TOTAL BILIRUBIN 0.3 mg/dL (0.0-1.0); TOTAL PROTEIN, SERUM 7.3 g/dL (6.4-8.2)
[2023-10-01] MEDS: VANCOMYCIN 1,000 MG in DEXTROSE 5% 250 ML IV SCH (16:39)
[2023-10-02] VITALS (30 sets, daily range): BP systolic 100–149; BP diastolic 55–84; PULSE 67–106; RESP 12–22; TEMP 97–99.1; O2SAT 96–100
[2023-10-02 05:48] LABS: BASOPHILS # (AUTO) 0.1 K/uL (0.00-0.22); BASOPHILS % (AUTO) 0.8 % (0.0-2.0); EOSINOPHILS # (AUTO) 0.3 K/uL (0-0.4); EOSINOPHILS % (AUTO) 3.7 % (0.0-4.0); HEMATOCRIT 21.4 % (36-48); HEMOGLOBIN 7.2 g/dL (12.0-16.0); LYMPHOCYTES # (AUTO) 1.9 K/uL (2.5-16.5); LYMPHOCYTES % (AUTO) 22.7 % (20.5-51.1); MEAN CORPUSCULAR HEMOGLOBIN 31 pg (27-31); MEAN CORPUSCULAR HGB CONC 34 g/dL (33-37); MEAN CORPUSCULAR VOLUME 90.7 fL (80-94); MONOCYTES # (AUTO) 0.4 K/uL (0.8-1.0); MONOCYTES % (AUTO) 4.6 % (1.7-9.3); NEUTROPHILS # (AUTO) 5.6 K/uL (1.8-7.7); NEUTROPHILS % (AUTO) 68.2 % (42.2-75.2); PLATELET COUNT (AUTO) 488 K/uL (140-450); RED BLOOD CELL COUNT(AUTO) 2.36 MIL/uL (4.20-5.40); WHITE BLOOD COUNT (AUTO) 8.2 K/uL (4.8-10.8)
[2023-10-02 06:13] LABS: ANION GAP 9.7 (8-16); CALCIUM 8.7 mg/dL (8.5-10.1); CARBON DIOXIDE 29.3 mmol/L (21-32); CREATININE 0.7 mg/dL (0.6-1.3)
[2023-10-02] MEDS: LEVALBUTEROL 0.63 MG/3 ML NEBU INH PRN (08:21)
[2023-10-02 14:48] LABS: BLOOD GAS PCO2 33.9 mmHg (35-45); BLOOD GAS PH 7.504 (7.35-7.45)
[2023-10-02 14:49] LABS: BLOOD GAS HCO3 26.1 mmol/L (22-26); BLOOD GAS O2 SAT% 98.2 % (92.0-98.5); BLOOD GAS PO2 111.8 mmHg (75-100)
[2023-10-02] MEDS: DEXT 5% /NACL 0.9% 1,000 ML IV SCH (17:30)
[2023-10-02] MEDS ORDERED: DEXT 5% / NACL 0.9% 500 ML IV SCH (18:40)
[2023-10-03] VITALS (34 sets, daily range): BP systolic 72–164; BP diastolic 56–100; PULSE 68–145; RESP 12–33; TEMP 97.1–98.2; O2SAT 96–100
[2023-10-03] MEDS: DEXT 5% /NACL 0.9% 1,000 ML IV SCH (00:18)
[2023-10-03 02:21] LABS: BASOPHILS # (AUTO) 0.1 K/uL (0.00-0.22); BASOPHILS % (AUTO) 1.1 % (0.0-2.0); EOSINOPHILS # (AUTO) 0.3 K/uL (0-0.4); HEMATOCRIT 26.6 % (36-48); LYMPHOCYTES % (AUTO) 22.9 % (20.5-51.1); MEAN CORPUSCULAR HEMOGLOBIN 31 pg (27-31); MEAN CORPUSCULAR HGB CONC 34 g/dL (33-37); MEAN CORPUSCULAR VOLUME 90.5 fL (80-94); MONOCYTES # (AUTO) 0.4 K/uL (0.8-1.0); MONOCYTES % (AUTO) 4.8 % (1.7-9.3); NEUTROPHILS # (AUTO) 5.8 K/uL (1.8-7.7); NEUTROPHILS % (AUTO) 67.2 % (42.2-75.2); PLATELET COUNT (AUTO) 569 K/uL (140-450); RED BLOOD CELL COUNT(AUTO) 2.93 MIL/uL (4.20-5.40); RED CELL DISTRIBUTION WIDTH 13.1 % (11.6-13.7); WHITE BLOOD COUNT (AUTO) 8.7 K/uL (4.8-10.8)
[2023-10-03 02:39] LABS: ANION GAP 9.8 (8-16); CALCIUM 8.7 mg/dL (8.5-10.1); CARBON DIOXIDE 30.7 mmol/L (21-32); CREATININE 0.7 mg/dL (0.6-1.3); POTASSIUM 4.5 mmol/L (3.5-5.1)
[2023-10-03 09:51] LABS: BLOOD GAS BASE EXCESS 1.9 mmol/L (-2.0-2.0); BLOOD GAS HCO3 24.1 mmol/L (22-26); BLOOD GAS O2 SAT% 99.1 % (92.0-98.5); BLOOD GAS PCO2 28.8 mmHg (35-45); BLOOD GAS PO2 141.8 mmHg (75-100)
[2023-10-03] MEDS ORDERED: SEVOFLURANE 250 ML BTL INH ONE (10:00)
[2023-10-03] MEDS ORDERED: methylPREDNISolone SS 40 MG/ML VIAL ONE (13:20)
[2023-10-03] MEDS: VANCOMYCIN 1,000 MG in DEXTROSE 5% 250 ML IV SCH (17:30)
[2023-10-04] VITALS (21 sets, daily range): BP systolic 120–159; BP diastolic 58–84; PULSE 86–115; RESP 16–35; TEMP 97.2–100.3; O2SAT 93–100
[2023-10-04 10:01] LABS: BASOPHILS # (AUTO) 0.1 K/uL (0.00-0.22); BASOPHILS % (AUTO) 0.5 % (0.0-2.0); EOSINOPHILS # (AUTO) 0.2 K/uL (0-0.4); EOSINOPHILS % (AUTO) 1.6 % (0.0-4.0); HEMATOCRIT 25.8 % (36-48); HEMOGLOBIN 8.7 g/dL (12.0-16.0); LYMPHOCYTES % (AUTO) 9.4 % (20.5-51.1); MEAN CORPUSCULAR HEMOGLOBIN 30 pg (27-31); MEAN CORPUSCULAR HGB CONC 34 g/dL (33-37); MEAN CORPUSCULAR VOLUME 89.1 fL (80-94); MONOCYTES # (AUTO) 0.4 K/uL (0.8-1.0); MONOCYTES % (AUTO) 3.3 % (1.7-9.3); NEUTROPHILS # (AUTO) 9.5 K/uL (1.8-7.7); NEUTROPHILS % (AUTO) 85.2 % (42.2-75.2); PLATELET COUNT (AUTO) 543 K/uL (140-450); RED BLOOD CELL COUNT(AUTO) 2.89 MIL/uL (4.20-5.40); RED CELL DISTRIBUTION WIDTH 13.3 % (11.6-13.7); WHITE BLOOD COUNT (AUTO) 11.1 K/uL (4.8-10.8)
[2023-10-04 10:08] LABS: CALCIUM 8.4 mg/dL (8.5-10.1); CARBON DIOXIDE 28.8 mmol/L (21-32); CREATININE 0.7 mg/dL (0.6-1.3); POTASSIUM 3.8 mmol/L (3.5-5.1)
[2023-10-04] MEDS: LIDOCAINE 1% 500 MG/50 ML VIAL ONE (23:00)
[2023-10-04] MEDS: MIDAZOLAM 2 MG/2 ML VIAL ONE (23:02)
[2023-10-04] MEDS: fentaNYL citrate 0.05 MG/ML VIAL ONE (23:02)
[2023-10-04] MEDS: ROCURONIUM 50 MG/5 ML VIAL IV ONE (23:03)
[2023-10-04] MEDS: PROPOFOL 200 MG/20 ML VIAL IV ONE (23:03)
[2023-10-04] MEDS: SUGAMMADEX SODIUM 200 MG/2 ML VIAL IV ONE (23:04)
[2023-10-04] MEDS: LIDOCAINE/EPI 1% 1:100000 20 ML VIAL INJ ONE (23:04)
[2023-10-05] VITALS (15 sets, daily range): BP systolic 129–161; BP diastolic 59–75; PULSE 85–123; RESP 16–26; TEMP 97.5–100.1; O2SAT 96–100
[2023-10-05 05:26] LABS: BASOPHILS # (AUTO) 0.1 K/uL (0.00-0.22); BASOPHILS % (AUTO) 0.5 % (0.0-2.0); EOSINOPHILS # (AUTO) 0.2 K/uL (0-0.4); EOSINOPHILS % (AUTO) 1.6 % (0.0-4.0); HEMATOCRIT 23.7 % (36-48); HEMOGLOBIN 7.8 g/dL (12.0-16.0); LYMPHOCYTES # (AUTO) 1.9 K/uL (2.5-16.5); LYMPHOCYTES % (AUTO) 14.2 % (20.5-51.1); MEAN CORPUSCULAR HEMOGLOBIN 30 pg (27-31); MEAN CORPUSCULAR HGB CONC 33 g/dL (33-37); MEAN CORPUSCULAR VOLUME 89.8 fL (80-94); MONOCYTES # (AUTO) 0.5 K/uL (0.8-1.0); MONOCYTES % (AUTO) 3.5 % (1.7-9.3); NEUTROPHILS # (AUTO) 10.6 K/uL (1.8-7.7); NEUTROPHILS % (AUTO) 80.2 % (42.2-75.2); PLATELET COUNT (AUTO) 556 K/uL (140-450); RED BLOOD CELL COUNT(AUTO) 2.64 MIL/uL (4.20-5.40); RED CELL DISTRIBUTION WIDTH 13.4 % (11.6-13.7); WHITE BLOOD COUNT (AUTO) 13.3 K/uL (4.8-10.8)
[2023-10-05 05:55] LABS: ANION GAP 10.4 (8-16); CALCIUM 8.4 mg/dL (8.5-10.1); CARBON DIOXIDE 29.3 mmol/L (21-32); CREATININE 0.7 mg/dL (0.6-1.3); POTASSIUM 3.7 mmol/L (3.5-5.1)
[2023-10-06] VITALS (12 sets, daily range): BP systolic 117–145; BP diastolic 62–77; PULSE 90–119; RESP 20–24; TEMP 98.5–99.4; O2SAT 94–100
[2023-10-06 10:49] LABS: BASOPHILS % (AUTO) 0.4 % (0.0-2.0); EOSINOPHILS # (AUTO) 0.3 K/uL (0-0.4); EOSINOPHILS % (AUTO) 2.3 % (0.0-4.0); HEMATOCRIT 24.8 % (36-48); HEMOGLOBIN 8.2 g/dL (12.0-16.0); LYMPHOCYTES # (AUTO) 1.6 K/uL (2.5-16.5); MEAN CORPUSCULAR HEMOGLOBIN 29 pg (27-31); MEAN CORPUSCULAR HGB CONC 33 g/dL (33-37); MONOCYTES # (AUTO) 0.4 K/uL (0.8-1.0); MONOCYTES % (AUTO) 3.6 % (1.7-9.3); NEUTROPHILS # (AUTO) 8.9 K/uL (1.8-7.7); NEUTROPHILS % (AUTO) 79.7 % (42.2-75.2); PLATELET COUNT (AUTO) 573 K/uL (140-450); RED BLOOD CELL COUNT(AUTO) 2.82 MIL/uL (4.20-5.40); RED CELL DISTRIBUTION WIDTH 13.3 % (11.6-13.7); WHITE BLOOD COUNT (AUTO) 11.1 K/uL (4.8-10.8)
[2023-10-06 11:03] LABS: ANION GAP 10.7 (8-16); CALCIUM 8.3 mg/dL (8.5-10.1); CARBON DIOXIDE 30.4 mmol/L (21-32); CREATININE 0.6 mg/dL (0.6-1.3); POTASSIUM 4.1 mmol/L (3.5-5.1)
[2023-10-07] VITALS (16 sets, daily range): BP systolic 15–166; BP diastolic 69–87; PULSE 91–116; RESP 18–22; TEMP 98.9–99.6; O2SAT 95–100
[2023-10-08] VITALS (14 sets, daily range): BP systolic 116–159; BP diastolic 65–85; PULSE 91–118; RESP 18–27; TEMP 98.5–100.6; O2SAT 96–100
[2023-10-08] MEDS: INSULIN LANTUS 100 UNITS/ML 10 ML VIAL SUBQ SCH (08:55)
[2023-10-08] MEDS ORDERED: INSULIN LANTUS 100 UNITS/ML 10 ML VIAL SUBQ SCH (09:00)
[2023-10-09] VITALS (9 sets, daily range): BP systolic 134–159; BP diastolic 69–89; PULSE 94–114; RESP 19–27; TEMP 97.6–100.6; O2SAT 95–100
[2023-10-09] MEDS ORDERED: KEP500L GT ×2 (17:22→17:23)
== END 2023-10-09 18:00 | DRG 5 ==
LOC: MED 09:06 → MTU 10:54 → MIC 15:36 → MTU 10-05 18:00
PROVIDERS: ADMIT Hospitalist; ATTEND Hospitalist
PROC: 5A1955Z Respiratory Ventilation, Greater than 96 Consecutive Hours (ICD-10-PCS; principal; 2023-09-18)
PROC: 0BH17EZ Insertion of Endotracheal Airway into Trachea, Via Natural or Artificial Opening (ICD-10-PCS; 2023-09-18)
PROC: 5A0935A Assistance with Respiratory Ventilation, Less than 24 Consecutive Hours, High Flow/Velocity Cannula (ICD-10-PCS; 2023-09-18)
PROC: 5A12012 Performance of Cardiac Output, Single, Manual (ICD-10-PCS; 2023-09-18)
PROC: 4A00X4Z Measurement of Central Nervous Electrical Activity, External Approach (ICD-10-PCS; 2023-09-22)
PROC: 0DH63UZ Insertion of Feeding Device into Stomach, Percutaneous Approach (ICD-10-PCS; 2023-10-03)
PROC: 5A1955Z Respiratory Ventilation, Greater than 96 Consecutive Hours (ICD-10-PCS; 2023-10-03)
PROC: 0B110F4 Bypass Trachea to Cutaneous with Tracheostomy Device, Open Approach (ICD-10-PCS; 2023-10-03 11:00)
DX: A41.9 Sepsis, unspecified organism (principal); N17.0 Acute kidney failure with tubular necrosis; I46.9 Cardiac arrest, cause unspecified; G93.41 Metabolic encephalopathy; T17.890A Other foreign object in other parts of respiratory tract causing asphyxiation, initial encounter; J15.9 Unspecified bacterial pneumonia; E86.0 Dehydration; E87.21 Acute metabolic acidosis; E87.0 Hyperosmolality and hypernatremia; J96.01 Acute respiratory failure with hypoxia; F20.9 Schizophrenia, unspecified; E03.9 Hypothyroidism, unspecified; D72.829 Elevated white blood cell count, unspecified; Z20.822 Contact with and (suspected) exposure to COVID-19; W44.F9XA Other object of natural or organic material, entering into or through a natural orifice, initial encounter; Y93.9 Activity, unspecified; Y92.9 Unspecified place or not applicable
CPT/HCPCS: 36415; 36600; 70450; 71045; 80048; 80053; 80076; 80202; 80305; 81001; 82009; 82550; 82803; 82948; 83605; 83735; 83880; 84100; 84443; 84479; 84484; 85025; 85610; 85730; 86886; 86900; 86901; 86920; 87040; 87070; 87081; 87086; 89220; 92950; 93005; 94003; 94640; 94660; 95816; 96361; 96365; 96366; 96367; 96375; 99291; C9113; G0480; J0610; J1644; J1815; J1953; J2001; J2060; J2250; J2543; J2704; J2920; J3010; J3370; J3475; J3480; J3490; J7030; J7060; J7613; J7614; J7644; Q0092

== ENCOUNTER 2024-03-17 17:23 | Inpatient (IN) | payer OTHER ==
[~2024-03-17] VITALS: Ht 149.9 cm; Wt 39.5 kg
[~2024-03-17 17:23] MED LIST changes: -ETOMIDATE 20 MG/10 ML VIAL IVP ONE; +KEP500L GT
[2024-03-17 17:24] VITALS: BP 100/37; PULSE 114; RESP 24; TEMP 104.5; O2SAT 96
[2024-03-17 17:42] VITALS: BP 100/37; PULSE 132; O2SAT 98
[2024-03-17 18:07] LABS: HEMATOCRIT 31.3 % (36-48); HEMOGLOBIN 9.7 g/dL (12.0-16.0); MEAN CORPUSCULAR HEMOGLOBIN 24 pg (27-31); MEAN CORPUSCULAR HGB CONC 31 g/dL (33-37); MEAN CORPUSCULAR VOLUME 78.3 fL (80-94); PLATELET COUNT (AUTO) 603 K/uL (140-450); RED CELL DISTRIBUTION WIDTH 16.7 % (11.6-13.7); WHITE BLOOD COUNT (AUTO) 20.1 K/uL (4.8-10.8)
[2024-03-17 18:09] LABS: APPEARANCE,URINE SL CLOUDY (CLEAR); BILIRUBIN,URINE NEGATIVE (NEGATIVE); BLOOD, URINE NEGATIVE (NEGATIVE); COLOR,URINE YELLOW (YELLOW); LEUKOCYTE ESTERASE ,URINE 2+ (NEGATIVE); NITRITE, URINE NEGATIVE (NEGATIVE); PH,URINE >=9.0 (5.0-9.0); PROTEIN,URINE 3+ (NEGATIVE); UGLUCOSE 1+ (NEGATIVE); UROBILINOGEN,URINE 0.2 EU/dL (0.2 - 1)
[2024-03-17 18:14] LABS: BACTERIA,URINE 3+ /HPF (None Seen); MUCUS,URINE None Seen /LPF (None Seen); RBC,URINE 0 /HPF (0-5); SQUAMOUS EPITHELIAL CELL,UR 4-10 (MOD) /LPF (0-3 (FEW))
[2024-03-17] MEDS ORDERED: VANCOMYCIN 1,000 MG VIAL ONE (18:17)
[2024-03-17] MEDS ORDERED: PIPERACILLIN/TAZOBACTAM 3.375 GM VIAL IV ONE (18:17)
[2024-03-17] MEDS: PIPERACILLIN/TAZOBACTAM 3.375 GM in DEXTROSE 5% 50 ML IV ONE (18:21)
[2024-03-17] MEDS: NACL 0.9% 500 ML IV ONE ×2 (18:22→18:49)
[2024-03-17] MEDS: ACETAMINOPHEN 650 MG SUPP RC ONE (18:22)
[2024-03-17 18:27] LABS: HYPOCHROMASIA 1+; LYMPHOCYTES % (MANUAL) 14 % (20-46); MONOCYTES % (MANUAL) 1 % (5-12); PLATELET ESTIMATE INCREASED
[2024-03-17 18:30] LABS: ALBUMIN 1.9 g/dL (3.4-5.0); ANION GAP 13.3 (8-16); CALCIUM 10.7 mg/dL (8.5-10.1); CARBON DIOXIDE 31.6 mmol/L (21-32); CREATININE 1.2 mg/dL (0.6-1.3); POTASSIUM 4.9 mmol/L (3.5-5.1); TOTAL BILIRUBIN 0.3 mg/dL (0.0-1.0); TOTAL PROTEIN, SERUM 8.6 g/dL (6.4-8.2)
[2024-03-17 18:42] LABS: LACTIC ACID 4.2 mmol/L (0.4-2.0)
[2024-03-17] MEDS: VANCOMYCIN 1,000 MG in DEXTROSE 5% 250 ML IV ONE (18:48)
[2024-03-17] MEDS: NACL 0.9% 1,000 ML IV ONE (19:45)
[2024-03-17 20:24] LABS: BILIRUBIN,URINE NEGATIVE (NEGATIVE); BLOOD, URINE 2+ (NEGATIVE); COLOR,URINE YELLOW (YELLOW); LEUKOCYTE ESTERASE ,URINE 2+ (NEGATIVE); NITRITE, URINE NEGATIVE (NEGATIVE); PH,URINE 8.5 (5.0-9.0); PROTEIN,URINE 3+ (NEGATIVE); UGLUCOSE 2+ (NEGATIVE); UROBILINOGEN,URINE 0.2 EU/dL (0.2 - 1)
[2024-03-17 20:25] LABS: APPEARANCE,URINE SLIGHTLY CLOUDY (CLEAR)
[2024-03-17 20:27] LABS: BACTERIA,URINE 2+ /HPF (None Seen); MUCUS,URINE None Seen /LPF (None Seen); SQUAMOUS EPITHELIAL CELL,UR 4-10 (MOD) /LPF (0-3 (FEW))
[2024-03-17 20:59] LABS: FLU A ANTIGEN negative (NEGATIVE); FLU B ANTIGEN NEGATIVE (NEGATIVE)
[2024-03-17] MEDS ORDERED: NOREPINEPHRINE 4 MG/4 ML VIAL IV ONE ×2 (21:14→21:20)
[2024-03-17 21:23] VITALS: BP 96/53; PULSE 109; O2SAT 99
[2024-03-17] MEDS: NOREPINEPHRINE 8 MG in DEXTROSE 5% 250 ML IV PRN (21:40)
[2024-03-17] MEDS ORDERED: MORPHINE SULFATE 2 MG/ML SYR IVP PRN (22:15)
[2024-03-17] MEDS ORDERED: ONDANSETRON 4 MG/2 ML VIAL IVP PRN (22:15)
[2024-03-17] MEDS ORDERED: DEXTROSE 50% 50 ML SYR IVP PRN (22:30)
[2024-03-17] MEDS: NACL 0.9% 1,000 ML IV SCH (22:53)
[2024-03-17] MEDS ORDERED: CRUSHER, PILL MC ONE (23:29)
[2024-03-17] MEDS: IBUPROFEN 600 MG TAB GT ONE (23:35)
[2024-03-17 23:37] VITALS: BP 129/58; PULSE 112; O2SAT 99
[2024-03-17 23:57] LABS: BLOOD GAS BASE EXCESS 2.3 mmol/L (-2.0-2.0); BLOOD GAS HCO3 25.6 mmol/L (22-26); BLOOD GAS O2 SAT% 96.1 % (92.0-98.5); BLOOD GAS PCO2 34.5 mmHg (35-45); BLOOD GAS PH 7.488 (7.35-7.45); BLOOD GAS PO2 85.4 mmHg (75-100)
[2024-03-18] VITALS (23 sets, daily range): BP systolic 86–155; BP diastolic 41–93; PULSE 81–113; RESP 14–29; TEMP 99.1–100.4; O2SAT 97–100
[2024-03-18] MEDS: BLOOD GLUCOSE MONITORING 1 DEV DEV FS SCH (00:31)
[2024-03-18] MEDS ORDERED: PIPERACILLIN/TAZOBACTAM 2.25 GM VIAL IV ONE ×2 (00:33→06:06)
[2024-03-18] MEDS: PIPERACILLIN/TAZOBACTAM 2.25 GM in DEXTROSE 5% 50 ML IV SCH (01:02)
[2024-03-18] MEDS: INSULIN LISPRO SLIDING SCALE 100 UNITS/ML VIAL SUBQ PRN (04:23)
[2024-03-18] MEDS: ACETAMINOPHEN 650 MG/20.3 ML UDC GT PRN (06:35)
[2024-03-18 07:45] LABS: ALBUMIN 1.5 g/dL (3.4-5.0); ANION GAP 9.8 (8-16); CALCIUM 8.8 mg/dL (8.5-10.1); CARBON DIOXIDE 28.6 mmol/L (21-32); CREATININE 0.7 mg/dL (0.6-1.3); POTASSIUM 3.4 mmol/L (3.5-5.1); TOTAL BILIRUBIN 0.4 mg/dL (0.0-1.0); TOTAL PROTEIN, SERUM 6.9 g/dL (6.4-8.2)
[2024-03-18 07:47] LABS: HEMATOCRIT 24.2 % (36-48); HEMOGLOBIN 7.5 g/dL (12.0-16.0); MEAN CORPUSCULAR HEMOGLOBIN 25 pg (27-31); MEAN CORPUSCULAR HGB CONC 31 g/dL (33-37); MEAN CORPUSCULAR VOLUME 79.2 fL (80-94); PLATELET COUNT (AUTO) 549 K/uL (140-450); RED BLOOD CELL COUNT(AUTO) 3.06 MIL/uL (4.20-5.40); RED CELL DISTRIBUTION WIDTH 16.7 % (11.6-13.7)
[2024-03-18 07:58] LABS: WHITE BLOOD COUNT (AUTO) 21.9 K/uL (4.8-10.8)
[2024-03-18 08:00] LABS: EOSINOPHILS % (MANUAL) 2 % (0-4); LYMPHOCYTES % (MANUAL) 11 % (20-46); MONOCYTES % (MANUAL) 4 % (5-12); PLATELET ESTIMATE ADEQUATE
[2024-03-18 08:01] LABS: HYPOCHROMASIA 1+
[2024-03-18] MEDS ORDERED: PANTOPRAZOLE 40 MG INJ VIAL IVP SCH (09:00)
[2024-03-18] MEDS ORDERED: levETIRAcetam 100 MG/ML ORASYR GT SCH (09:00)
[2024-03-18] MEDS: NOREPINEPHRINE 8 MG in DEXTROSE 5% 250 ML IV PRN (10:13)
[2024-03-18] MEDS: PANTOPRAZOLE 40 MG INJ VIAL IVP SCH (10:39)
[2024-03-18] MEDS: levETIRAcetam 100 MG/ML ORASYR GT SCH (10:39)
[2024-03-18] MEDS: ARIPiprazole 10 MG TAB GT SCH (10:39)
[2024-03-18] MEDS: ENOXAPARIN 40 MG/0.4 ML SYR SUBQ SCH (10:40)
[2024-03-18] MEDS: KCL 20 MEQ IN 100 mL PREMIX 200 ML IV SCH (12:19)
[2024-03-18] MEDS ORDERED: NACL 0.9% 1,000 ML IV SCH ×2 (12:35→13:00)
[2024-03-18] MEDS: ALBUMIN HUMAN 5 % 250 ML IV SCH (13:17)
[2024-03-18] MEDS: ALBUTEROL 0.083% 2.5 MG/3 ML NEBU INH PRN (19:23)
[2024-03-19] VITALS (40 sets, daily range): BP systolic 105–154; BP diastolic 49–84; PULSE 71–97; RESP 16–29; TEMP 97.2–98.9; O2SAT 98–100
[2024-03-19 06:29] LABS: ANION GAP 9.6 (8-16); CALCIUM 8.9 mg/dL (8.5-10.1); CARBON DIOXIDE 26.8 mmol/L (21-32); CREATININE 0.5 mg/dL (0.6-1.3); POTASSIUM 3.4 mmol/L (3.5-5.1)
[2024-03-19 06:40] LABS: BASOPHILS % (AUTO) 0.3 % (0.0-2.0); EOSINOPHILS # (AUTO) 0.4 K/uL (0-0.4); HEMATOCRIT 20.3 % (36-48); LYMPHOCYTES # (AUTO) 2.3 K/uL (2.5-16.5); LYMPHOCYTES % (AUTO) 20.7 % (20.5-51.1); MEAN CORPUSCULAR HEMOGLOBIN 25 pg (27-31); MEAN CORPUSCULAR HGB CONC 31 g/dL (33-37); MEAN CORPUSCULAR VOLUME 80.3 fL (80-94); MONOCYTES # (AUTO) 0.4 K/uL (0.8-1.0); MONOCYTES % (AUTO) 3.9 % (1.7-9.3); NEUTROPHILS # (AUTO) 7.8 K/uL (1.8-7.7); NEUTROPHILS % (AUTO) 71.1 % (42.2-75.2); PLATELET COUNT (AUTO) 418 K/uL (140-450); RED BLOOD CELL COUNT(AUTO) 2.52 MIL/uL (4.20-5.40); RED CELL DISTRIBUTION WIDTH 16.9 % (11.6-13.7)
[2024-03-19 06:52] LABS: HEMOGLOBIN 6.3 g/dL (12.0-16.0)
[2024-03-19] MEDS ORDERED: THERAHONEY GEL 42.5 GM TP PRN (08:30)
[2024-03-19] MEDS ORDERED: FOAM DRESSING TP PRN (08:30)
[2024-03-19] MEDS: THERAHONEY GEL 42.5 GM TP SCH (11:28)
[2024-03-19] MEDS: HYDRAGUARD CREAM TP SCH (11:29)
[2024-03-19] MEDS: FOAM DRESSING TP SCH (11:29)
[2024-03-19 16:47] LABS: BASOPHILS % (AUTO) 0.3 % (0.0-2.0); EOSINOPHILS # (AUTO) 0.4 K/uL (0-0.4); EOSINOPHILS % (AUTO) 3.6 % (0.0-4.0); HEMATOCRIT 21.9 % (36-48); LYMPHOCYTES # (AUTO) 1.8 K/uL (2.5-16.5); LYMPHOCYTES % (AUTO) 17.8 % (20.5-51.1); MEAN CORPUSCULAR HEMOGLOBIN 26 pg (27-31); MEAN CORPUSCULAR HGB CONC 32 g/dL (33-37); MEAN CORPUSCULAR VOLUME 81.4 fL (80-94); MONOCYTES # (AUTO) 0.4 K/uL (0.8-1.0); MONOCYTES % (AUTO) 3.5 % (1.7-9.3); NEUTROPHILS # (AUTO) 7.6 K/uL (1.8-7.7); NEUTROPHILS % (AUTO) 74.8 % (42.2-75.2); PLATELET COUNT (AUTO) 365 K/uL (140-450); RED BLOOD CELL COUNT(AUTO) 2.69 MIL/uL (4.20-5.40); RED CELL DISTRIBUTION WIDTH 16.7 % (11.6-13.7); WHITE BLOOD COUNT (AUTO) 10.2 K/uL (4.8-10.8)
[2024-03-20] VITALS (23 sets, daily range): BP systolic 107–169; BP diastolic 55–91; PULSE 66–84; RESP 14–24; TEMP 97.1–98.6; O2SAT 97–100
[2024-03-20 01:59] LABS: BASOPHILS % (AUTO) 0.2 % (0.0-2.0); EOSINOPHILS # (AUTO) 0.5 K/uL (0-0.4); EOSINOPHILS % (AUTO) 4.7 % (0.0-4.0); HEMATOCRIT 29.8 % (36-48); HEMOGLOBIN 9.7 g/dL (12.0-16.0); LYMPHOCYTES # (AUTO) 2.4 K/uL (2.5-16.5); LYMPHOCYTES % (AUTO) 23.3 % (20.5-51.1); MEAN CORPUSCULAR HEMOGLOBIN 27 pg (27-31); MEAN CORPUSCULAR HGB CONC 33 g/dL (33-37); MEAN CORPUSCULAR VOLUME 83.3 fL (80-94); MONOCYTES # (AUTO) 0.4 K/uL (0.8-1.0); MONOCYTES % (AUTO) 4.4 % (1.7-9.3); NEUTROPHILS # (AUTO) 6.9 K/uL (1.8-7.7); NEUTROPHILS % (AUTO) 67.4 % (42.2-75.2); PLATELET COUNT (AUTO) 400 K/uL (140-450); RED BLOOD CELL COUNT(AUTO) 3.58 MIL/uL (4.20-5.40); RED CELL DISTRIBUTION WIDTH 16.8 % (11.6-13.7); WHITE BLOOD COUNT (AUTO) 10.2 K/uL (4.8-10.8)
[2024-03-20] MEDS: ALBUTEROL SULFATE/IPRATROPIU 3 ML SOL IH PRN (13:36)
[2024-03-20] MEDS: NACL 0.45% 1,000 ML IV SCH (15:55)
[2024-03-20] MEDS ORDERED: POTASSIUM CHLORIDE 10 MEQ TABER PO SCH (16:11)
[2024-03-20 17:36] LABS: CALCIUM 8.6 mg/dL (8.5-10.1); CREATININE 0.5 mg/dL (0.6-1.3)
[2024-03-20] MEDS: POTASSIUM CHLORIDE 20% 40 MEQ/15 ML UDC GT SCH (18:50)
[2024-03-21] VITALS (12 sets, daily range): BP systolic 106–136; BP diastolic 51–73; PULSE 52–114; RESP 14–18; TEMP 96.5–99.2; O2SAT 98–100
[2024-03-21 08:10] LABS: ANION GAP 12.6 (8-16); CALCIUM 8.5 mg/dL (8.5-10.1); CARBON DIOXIDE 24.9 mmol/L (21-32); CREATININE 0.5 mg/dL (0.6-1.3); POTASSIUM 3.5 mmol/L (3.5-5.1)
[2024-03-21] MEDS ORDERED: MERO1PIG IV (11:24)
[2024-03-21] MEDS: POTASSIUM CHLORIDE 10 MEQ TABER PO SCH (17:13)
[2024-03-22] VITALS (10 sets, daily range): BP systolic 111–129; BP diastolic 60–75; PULSE 63–72; RESP 16–18; TEMP 96.9–98.6; O2SAT 98–100
[2024-03-22 07:25] LABS: ANION GAP 9.3 (8-16); CARBON DIOXIDE 26.3 mmol/L (21-32); CREATININE 0.4 mg/dL (0.6-1.3); POTASSIUM 3.6 mmol/L (3.5-5.1)
== END 2024-03-22 19:10 | DRG 720 ==
LOC: MED 17:23 → MMU 22:23 → MIC 22:23 → MTU 03-20 16:37
PROVIDERS: ADMIT Internal Medicine; ATTEND Internal Medicine
PROC: 5A1955Z Respiratory Ventilation, Greater than 96 Consecutive Hours (ICD-10-PCS; principal; 2024-03-17)
PROC: 06HY33Z Insertion of Infusion Device into Lower Vein, Percutaneous Approach (ICD-10-PCS; 2024-03-17)
PROC: B54BZZA Ultrasonography of Right Lower Extremity Veins, Guidance (ICD-10-PCS; 2024-03-17)
PROC: 30233N1 Transfusion of Nonautologous Red Blood Cells into Peripheral Vein, Percutaneous Approach (ICD-10-PCS; 2024-03-19)
DX: A41.9 Sepsis, unspecified organism (principal); J96.21 Acute and chronic respiratory failure with hypoxia; R65.21 Severe sepsis with septic shock; J95.851 Ventilator associated pneumonia; J15.1 Pneumonia due to Pseudomonas; E11.9 Type 2 diabetes mellitus without complications; D64.9 Anemia, unspecified; Z20.822 Contact with and (suspected) exposure to COVID-19; E03.9 Hypothyroidism, unspecified; F20.9 Schizophrenia, unspecified; Z93.0 Tracheostomy status; G40.909 Epilepsy, unspecified, not intractable, without status epilepticus; G93.1 Anoxic brain damage, not elsewhere classified; R13.10 Dysphagia, unspecified; N39.0 Urinary tract infection, site not specified; E87.6 Hypokalemia; E87.0 Hyperosmolality and hypernatremia; B96.4 Proteus (mirabilis) (morganii) as the cause of diseases classified elsewhere
CPT/HCPCS: 36415; 36430; 36600; 71045; 80048; 80053; 81001; 82803; 82948; 83605; 83735; 83880; 84484; 85025; 86886; 86900; 86901; 86920; 87040; 87070; 87081; 87086; 87186; 87205; 89220; 94002; 94003; 94640; 96365; 96366; 96367; 99291; J1650; J1815; J2470; J2543; J3370; J3480; J3490; J7030; J7060; J7613; P9016; P9041